=== PATIENT | male | born 1980 | race Caucasian/White ===

== ENCOUNTER 2016-08-15 09:28 | Emergency (ER) | payer BC ==
[2016-08-15] MEDS ORDERED: Sodium Chloride 0.9% 1,000 ML IV ONE (09:49)
[2016-08-15] MEDS ORDERED: Ketorolac 30 MG/ML SDV IVPUSH ONE (09:51)
--- NOTE | 2016-08-15 09:52 | EDM.PDOC ---
ED HPI GENERAL MEDICAL PROBLEM - General Chief Complaint: General Stated Complaint: CHEST PAIN Time Seen by Provider: 08/15/16 09:53 Source of Information: Reports: Patient, Other (employer) History Limitations: Reports: No Limitations - History of Present Illness INITIAL COMMENTS - FREE TEXT/NARRATIVE: 35 years old w m with a history of htn, -does not take meds for it- came to the ed 1 day after he was seen by his chiropracter who "set his neck". He has a family history of CAD and HTN. 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 relations ship with girlfriend broke up , which gave him stress as well, including chest pain, he thinks. No diaphoresis. BP was 151/87 on arrival, Pt locates his pain at his ant. chest and bilateral upper neck. No N/V/D or other acute medical issues at this time. Onset: Sudden, Gradual Onset Date: 08/15/16 Onset Time: 05:00 Duration: Hour(s):, Intermittent Location: Reports: Neck, Chest, Back Quality: Reports: Ache, Dull, Pressure Severity: Moderate Improves with: Reports: Cold Therapy, Immobilization Worsens with: Reports: Movement Context: Reports: Other (Chiropracter pulled on his neck yesterday) Associated Symptoms: Reports: Chest Pain, Malaise, Weakness - Related Data Allergies Allergy/AdvReac Type Severity Reaction Status Date / Time No Known Allergies Allergy Verified 08/15/16 09:45 Home Meds: Home Meds ALPRAZolam [Xanax] 0.5 mg PO BEDTIME PRN #3 tablet 08/15/16 [Rx] Losartan [Cozaar] 50 mg PO DAILY #5 tablet 08/15/16 [Rx] Orphenadrine [Norflex] 100 mg PO BID PRN #16 tab.er 08/15/16 [Rx] ED ROS GENERAL - Review of Systems Review Of Systems: See Below Constitutional: Reports: Weakness HEENT: Reports: No Symptoms Respiratory: Reports: No Symptoms Cardiovascular: Reports: Chest Pain, Blood Pressure Problem, Lightheadedness Endocrine: Reports: No Symptoms GI/Abdominal: Reports: No Symptoms : Reports: No Symptoms Musculoskeletal: Reports: Neck Pain, Shoulder Pain, Back Pain, Muscle Pain Skin: Reports: No Symptoms Neurological: Reports: Dizziness Psychiatric: Reports: No Symptoms Hematologic/Lymphatic: Reports: No Symptoms Immunologic: Reports: No Symptoms ED EXAM, GENERAL - Physical Exam Exam: See Below Exam Limited By: No Limitations General Appearance: Alert, WD/WN, Mild Distress, Moderate Distress Eye Exam: Bilateral Eye: Normal Inspection Ears: Normal External Exam Ear Exam: Bilateral Ear: Auricle Normal Nose: Normal Inspection, Normal Mucosa Throat/Mouth: Normal Inspection, Normal Lips Head: Atraumatic, Normocephalic Neck: Tender Lateral (bilateral) Respiratory/Chest: No Respiratory Distress, Lungs Clear (poor ins effort, decr. r breatsounds ) Cardiovascular: Normal Peripheral Pulses, Regular Rate, Rhythm, No Edema, No Gallop, No JVD, No Murmur, No Rub GI/Abdominal: Normal Bowel Sounds, Soft, Non-Tender, No Organomegaly (Male) Exam: Deferred Rectal (Males) Exam: Deferred Back Exam: Normal Inspection, Full Range of Motion, Paraspinal Tenderness Extremities: Normal Inspection, Normal Range of Motion, Non-Tender, No Pedal Edema, Normal Capillary Refill Neurological: Alert, Oriented, CN II-XII Intact, Normal Cognition, Normal Gait, No Motor/Sensory Deficits Psychiatric: Normal Affect, Anxious Skin Exam: Warm, Dry, Intact, Normal Color, No Rash Lymphatic: No Adenopathy EKG INTERPRETATION EKG Date: 08/15/16 Time: 09:30 Rhythm: NSR Rate (Beats/Min): 82 [place]: Normal P-Wave: Present QRS: Normal ST-T: Normal QT: Normal Comparison: NA - No Prior EKG Course - Vital Signs Text/Narrative:: 35 years old w m with a history of htn, -does not take meds for it- came to the ed 1 day after he was seen by his chiropracter who "set his neck". He has a family history of CAD and HTN. His 10 y. relations ship with girlfriend broke up , which gave him stress as well, including chest pain, he thinks. No diaphoresis. BP was 151/87 on arrival, Pt locates his pain at his ant. chest and bilateral upper neck. No N/V/D or other acute medical issues at this time. PE: anxious, bilat post neck and upper back pain to palp and movement. Decreases moisture of his mucosal membrane. Neck supple. ImagingL Ray of neck, t spine and CXR did not show acute changes. Labs: CPK 526. potassium was 3.4 Impression: Neck/back sprain, hypokalemia, anxiety, HTN Tx: T[place], Ice to upper back, Cozaar, Norflex. Reexam: Improved Plan: D/C home with instructions Last Recorded V/S: Last Vital Signs Temp 36.9 C 08/15/16 09:53 Pulse 80 08/15/16 09:53 Resp 18 08/15/16 09:53 BP 156/91 H 08/15/16 11:12 Pulse Ox 100 08/15/16 09:53 - Orders/Labs/Meds Orders: Active Orders 24 hr Category Date Time Status Cooling Warming Measures [RC] ASDIRECTED Care 08/15/16 10:21 Active Cervical Spine 2V or 3V [CR] Stat Exams 08/15/16 10:01 Taken Chest 2V [CR] Stat Exams 08/15/16 10:06 Taken Thoracic Spine 2V [CR] Stat Exams 08/15/16 10:01 Taken Orphenadrine [Norflex] Med 08/15/16 11:00 Active 60 mg IM Q12H Sodium Chloride 0.9% [Saline Flush] Med 08/15/16 09:54 Active 10 ml FLUSH ASDIRECTED PRN Ice Bag [Ice Therapy] [OM.PC] Routine Oth 08/15/16 10:21 Ordered Saline Lock Insert [OM.PC] Routine Oth 08/15/16 09:54 Ordered Medication Orders Orphenadrine Citrate (Norflex) 60 mg IM Q12H [facility] Last Admin: 08/15/16 11:06 Dose: 60 mg Sodium Chloride (Saline Flush) 10 ml FLUSH ASDIRECTED PRN PRN Reason: Keep Vein Open Last Admin: 08/15/16 10:05 Dose: 10 ml Labs: Laboratory Tests 08/15/16 08/15/16 08/15/16 Range/Units 09:50 09:50 09:50 WBC 10.1 (4.5-12.0) X10-3/uL RBC 5.06 (4.30-5.75) x10(6)uL Hgb 15.5 (11.5-15.5) g/dL Hct 45.0 (30.0-51.3) % MCV 88.8 (80-96) fL MCH 30.7 (27.7-33.6) pg MCHC 34.6 (32.2-35.4) g/dL RDW 12.2 (11.5-15.5) % Plt Count 296 (125-369) X10(3)uL MPV 7.2 L (7.4-10.4) fL Neut % (Auto) 60.9 (46-82) % Lymph % (Auto) 28.7 (13-37) % [place] % (Auto) 6.8 (4-12) % Eos % (Auto) 3 (1.0-5.0) % Baso % (Auto) 1 (0-2) % Neut # (Auto) 6.1 (1.6-8.3) # Lymph # (Auto) 2.9 (0.6-5.0) # [place] # (Auto) 0.7 (0.0-1.3) # Eos # (Auto) 0.3 (0.0-0.8) # Baso # (Auto) 0.1 (0.0-0.2) # PT 9.8 (8.7-11.1) INR 0.97 (0.89-1.13) Sodium 134 L (135-145) mmol/L Potassium 3.4 L (3.5-5.3) mmol/L Chloride 102 (100-110) mmol/L Carbon Dioxide 23 (23-29) mmol/L BUN 11 (5-20) mg/dL Creatinine 0.8 (0.6-1.3) mg/dL Est Cr Clr Drug Dosing 142.81 mL/min Estimated GFR (MDRD) > 60 (>60) BUN/Creatinine Ratio 13.8 (9-20) Glucose 109 (80-116) mg/dL Calcium 9.0 (8.6-10.2) mg/dL Magnesium (1.8-2.5) mg/dL Creatine Kinase (60-160) IU/L Troponin I (0.02-0.06) NG/ML Urine Color (YELLOW) Urine Appearance (CLEAR) Urine pH (5.0-6.5) Ur Specific [place] (1.010-1.025) Urine Protein (NEGATIVE) mg/dL Urine Glucose (UA) (NEGATIVE) mg/dL Urine Ketones (NEGATIVE) mg/dL Urine Occult Blood (NEGATIVE) Urine Nitrite (NEGATIVE) Urine Bilirubin (NEGATIVE) Urine Urobilinogen (NEGATIVE) mg/dL Ur Leukocyte Esterase (NEGATIVE) Urine RBC (0) Urine WBC (0) Ur Squamous Epith Cells (NS,R,O) Urine Bacteria (NS) Urine Opiates Screen (NEGATIVE) Ur Oxycodone Screen (NEGATIVE) Ur Propoxyphene Screen (NEGATIVE) Ur Barbituates Screen (NEGATIVE) Ur Tricyclics Screen (NEGATIVE) Ur Phencyclidine Scrn (NEGATIVE) Ur Amphetamine Screen (NEGATIVE) Urine MDMA Screen (NEGATIVE) U Benzodiazepines Scrn (NEGATIVE) U Cocaine Metab Screen (NEGATIVE) U Marijuana (THC) Screen (NEGATIVE) Ethyl Alcohol (<0.01) % 08/15/16 08/15/16 08/15/16 Range/Units 09:50 09:50 09:50 WBC (4.5-12.0) X10-3/uL RBC (4.30-5.75) x10(6)uL Hgb (11.5-15.5) g/dL Hct (30.0-51.3) % MCV (80-96) fL MCH (27.7-33.6) pg MCHC (32.2-35.4) g/dL RDW (11.5-15.5) % Plt Count (125-369) X10(3)uL MPV (7.4-10.4) fL Neut % (Auto) (46-82) % Lymph % (Auto) (13-37) % [place] % (Auto) (4-12) % Eos % (Auto) (1.0-5.0) % Baso % (Auto) (0-2) % Neut # (Auto) (1.6-8.3) # Lymph # (Auto) (0.6-5.0) # [place] # (Auto) (0.0-1.3) # Eos # (Auto) (0.0-0.8) # Baso # (Auto) (0.0-0.2) # PT (8.7-11.1) INR (0.89-1.13) Sodium (135-145) mmol/L Potassium (3.5-5.3) mmol/L Chloride (100-110) mmol/L Carbon Dioxide (23-29) mmol/L BUN (5-20) mg/dL Creatinine (0.6-1.3) mg/dL Est Cr Clr Drug Dosing mL/min Estimated GFR (MDRD) (>60) BUN/Creatinine Ratio (9-20) Glucose (80-116) mg/dL Calcium (8.6-10.2) mg/dL Magnesium (1.8-2.5) mg/dL Creatine Kinase 572 H* (60-160) IU/L Troponin I < 0.01 L (0.02-0.06) NG/ML Urine Color (YELLOW) Urine Appearance (CLEAR) Urine pH (5.0-6.5) Ur Specific [place] (1.010-1.025) Urine Protein (NEGATIVE) mg/dL Urine Glucose (UA) (NEGATIVE) mg/dL Urine Ketones (NEGATIVE) mg/dL Urine Occult Blood (NEGATIVE) Urine Nitrite (NEGATIVE) Urine Bilirubin (NEGATIVE) Urine Urobilinogen (NEGATIVE) mg/dL Ur Leukocyte Esterase (NEGATIVE) Urine RBC (0) Urine WBC (0) Ur Squamous Epith Cells (NS,R,O) Urine Bacteria (NS) Urine Opiates Screen (NEGATIVE) Ur Oxycodone Screen (NEGATIVE) Ur Propoxyphene Screen (NEGATIVE) Ur Barbituates Screen (NEGATIVE) Ur Tricyclics Screen (NEGATIVE) Ur Phencyclidine Scrn (NEGATIVE) Ur Amphetamine Screen (NEGATIVE) Urine MDMA Screen (NEGATIVE) U Benzodiazepines Scrn (NEGATIVE) U Cocaine Metab Screen (NEGATIVE) U Marijuana (THC) Screen (NEGATIVE) Ethyl Alcohol < 0.01 (<0.01) % 08/15/16 08/15/16 08/15/16 Range/Units 09:50 09:55 09:55 WBC (4.5-12.0) X10-3/uL RBC (4.30-5.75) x10(6)uL Hgb (11.5-15.5) g/dL Hct (30.0-51.3) % MCV (80-96) fL MCH (27.7-33.6) pg MCHC (32.2-35.4) g/dL RDW (11.5-15.5) % Plt Count (125-369) X10(3)uL MPV (7.4-10.4) fL Neut % (Auto) (46-82) % Lymph % (Auto) (13-37) % [place] % (Auto) (4-12) % Eos % (Auto) (1.0-5.0) % Baso % (Auto) (0-2) % Neut # (Auto) (1.6-8.3) # Lymph # (Auto) (0.6-5.0) # [place] # (Auto) (0.0-1.3) # Eos # (Auto) (0.0-0.8) # Baso # (Auto) (0.0-0.2) # PT (8.7-11.1) INR (0.89-1.13) Sodium (135-145) mmol/L Potassium (3.5-5.3) mmol/L Chloride (100-110) mmol/L Carbon Dioxide (23-29) mmol/L BUN (5-20) mg/dL Creatinine (0.6-1.3) mg/dL Est Cr Clr Drug Dosing mL/min Estimated GFR (MDRD) (>60) BUN/Creatinine Ratio (9-20) Glucose (80-116) mg/dL Calcium (8.6-10.2) mg/dL Magnesium 1.9 (1.8-2.5) mg/dL Creatine Kinase (60-160) IU/L Troponin I (0.02-0.06) NG/ML Urine Color Yellow (YELLOW) Urine Appearance Clear (CLEAR) Urine pH 5.0 (5.0-6.5) Ur Specific [place] 1.015 (1.010-1.025) Urine Protein Negative (NEGATIVE) mg/dL Urine Glucose (UA) Normal (NEGATIVE) mg/dL Urine Ketones Negative (NEGATIVE) mg/dL Urine Occult Blood Negative (NEGATIVE) Urine Nitrite Negative (NEGATIVE) Urine Bilirubin Negative (NEGATIVE) Urine Urobilinogen Normal (NEGATIVE) mg/dL Ur Leukocyte Esterase Negative (NEGATIVE) Urine RBC Not seen (0) Urine WBC 0-5 (0) Ur Squamous Epith Cells Occasional (NS,R,O) Urine Bacteria Not seen (NS) Urine Opiates Screen Negative (NEGATIVE) Ur Oxycodone Screen Negative (NEGATIVE) Ur Propoxyphene Screen Negative (NEGATIVE) Ur Barbituates Screen Negative (NEGATIVE) Ur Tricyclics Screen Negative (NEGATIVE) Ur Phencyclidine Scrn Negative (NEGATIVE) Ur Amphetamine Screen Negative (NEGATIVE) Urine MDMA Screen Negative (NEGATIVE) U Benzodiazepines Scrn Negative (NEGATIVE) U Cocaine Metab Screen Negative (NEGATIVE) U Marijuana (THC) Screen Negative (NEGATIVE) Ethyl Alcohol (<0.01) % Meds: Medications Generic Name Dose Route Start Last Admin Trade Name Freq PRN Reason Stop Dose Admin Orphenadrine Citrate 60 mg 08/15/16 11:00 08/15/16 11:06 Norflex IM 60 mg Q12H RAKAN Administration Sodium Chloride 10 ml 08/15/16 09:54 08/15/16 10:05 Saline Flush FLUSH 10 ml ASDIRECTED PRN Administration Keep Vein Open Discontinued Medications Generic Name Dose Route Start Last Admin Trade Name Freq PRN Reason Stop Dose Admin Sodium Chloride 1,000 mls @ 999 mls/hr 08/15/16 09:49 08/15/16 10:08 Normal Saline IV 08/15/16 10:49 999 mls/hr .BOLUS ONE Administration Ketorolac Tromethamine 30 mg 08/15/16 09:51 08/15/16 10:09 Toradol IVPUSH 08/15/16 09:52 30 mg ONETIME ONE Administration Losartan Potassium 25 mg 08/15/16 11:00 08/15/16 11:12 Cozaar PO 08/15/16 11:01 25 mg DAILY STA Administration Potassium Chloride 40 meq 08/15/16 10:28 08/15/16 10:44 Klor-Con M20 PO 08/15/16 10:29 40 meq ONETIME ONE Administration Departure - Departure Time of Disposition: 11:21 Disposition: Home, Self-Care 01 Condition: Good Clinical Impression: Anxiety, Hypokalemia Hypertension Qualifiers: Hypertension type: essential hypertension Qualified Code(s): I10 - Essential ( primary) hypertension Sprain, neck Qualifiers: Encounter type: initial encounter Qualified Code(s): S13.9XXA - Sprain of joints and ligaments of unspecified parts of neck, initial encounter - Discharge Information Prescriptions: ALPRAZolam [Xanax] 0.5 mg PO BEDTIME PRN #3 tablet PRN Reason: as needed for severe anxiety Losartan [Cozaar] 50 mg PO DAILY #5 tablet Orphenadrine [Norflex] 100 mg PO BID PRN #16 tab.er PRN Reason: Muscle Spasm Instructions: Hypokalemia, Potassium Content of Foods Referrals: PCP,None [Primary Care Provider] - Forms: ED Department Discharge, Return to Work/School Form Additional Instructions: Please apply ice to the affected area, please take Motrin for mod. pain, Norflex for muscle spasm, Xanax at bed time for anxiety. Please follow up, please come back to the ed if your symptoms get worse acutely. - My Orders Last 24 Hours: My Active Orders 08/15/16 09:54 Sodium Chloride 0.9% [Saline Flush] 10 ml FLUSH ASDIRECTED PRN Saline Lock Insert [OM.PC] Routine 08/15/16 10:01 Cervical Spine 2V or 3V [CR] Stat Thoracic Spine 2V [CR] Stat 08/15/16 10:06 Chest 2V [CR] Stat 08/15/16 10:21 Cooling Warming Measures [RC] ASDIRECTED Ice Bag [Ice Therapy] [OM.PC] Routine 08/15/16 11:00 Orphenadrine [Norflex] 60 mg IM Q12H - Assessment/Plan Last 24 Hours: My Active Orders 08/15/16 09:54 Sodium Chloride 0.9% [Saline Flush] 10 ml FLUSH ASDIRECTED PRN Saline Lock Insert [OM.PC] Routine 08/15/16 10:01 Cervical Spine 2V or 3V [CR] Stat Thoracic Spine 2V [CR] Stat 08/15/16 10:06 Chest 2V [CR] Stat 08/15/16 10:21 Cooling Warming Measures [RC] ASDIRECTED Ice Bag [Ice Therapy] [OM.PC] Routine 08/15/16 11:00 Orphenadrine [Norflex] 60 mg IM Q12H
[2016-08-15] MEDS ORDERED: Sodium Chloride 0.9% 10 ML Syringe FLUSH PRN (09:54)
[2016-08-15] MEDS ORDERED: Potassium Chloride 20 MEQ Tab.ER PO ONE (10:28)
[2016-08-15] MEDS ORDERED: Losartan 25 MG Tab PO STA (11:00)
[2016-08-15 11:13] VITALS: BP 156/91
--- NOTE | 2016-08-15 13:28 | CR ---
INDICATION: Trauma, pain. Went to chiropractor yesterday, pain in neck and T- spine since. CERVICAL SPINE: Three views of the cervical spine were obtained, revealing the odontoid to appear intact. Vertebral body and disk heights appear to be well maintained. There are some mild hypertrophic degenerative changes anteriorly at the C6-7 vertebral bodies. Prevertebral space and bone density appear to be normal. No evidence of a fracture or dislocation is identified. IMPRESSION: Essentially normal cervical spine, except for suggestion of some mild degenerative change anteriorly at C6-7. MTDD
--- NOTE | 2016-08-15 13:35 | CR ---
INDICATION: Trauma, pain. Went to chiropractor yesterday, pain in neck and T- spine since. THORACIC SPINE: Frontal and lateral views of the thoracic spine revealed some minimal degenerative changes in the mid thoracic spine. Vertebral body and disk heights were fairly well maintained, without a definite fracture or dislocation identified. If occult abnormality is suspected clinically, or soft tissue abnormality is suspected clinically in the spinal canal, MRI is recommended for further evaluation. JAMAALD
--- NOTE | 2016-08-15 13:38 | CR ---
INDICATION: Chest pain. CHEST: PA and lateral views of the chest revealed the heart, mediastinum, and bony thorax to be unremarkable except to note some minimal degenerative change in the mid thoracic spine. An active infiltrate, effusion, contusion, pneumothorax, or other abnormality of the chest was not identified. IMPRESSION: Minimal degenerative changes mid thoracic spine. No acute process. MTDD
== END 2016-08-15 11:40 | disposition home or self-care (01) ==
LOC: FB.ED 09:28
DX: S13.9XXA Sprain of joints and ligaments of unspecified parts of neck, initial encounter (principal); F41.9 Anxiety disorder, unspecified; E87.6 Hypokalemia; I10 Essential (primary) hypertension; I25.10 Atherosclerotic heart disease of native coronary artery without angina pectoris; Z79.899 Other long term (current) drug therapy; X58.XXXA Exposure to other specified factors, initial encounter
CPT/HCPCS: 36415; 71020; 72040; 72070; 80048; 80305; 81001; 82550; 83735; 84484; 85025; 85610; 93005; 96361; 96372; 96374; 99285; A9270; G0480; J1885; J2360; J7040; J7050